=== PATIENT | female | born 1985 | race Two or more races ===

== ENCOUNTER → 2020-06-27 | Outpatient (CLI) | payer OTHER ==
--- NOTE | 2020-06-30 00:19 | ECWPNPC ---
PATIENT NAME: DEEDEE BE : 1985 GENDER: FEMALE VISIT DATE: 06/27/2020 DISCHARGE DATE: 06/27/20 1403 VISIT LOCKED DATE TIME: PHYSICIAN: LYNN WEBBER RESOURCE: LYNN WEBBER REASON FOR APPOINTMENT 1. CESEARIAN SECTION SCAR PAIN HISTORY OF PRESENT ILLNESS GENERAL: DEEDEE IS A 35-YEAR-OLD [employer] REFERRED BY [facility] TO EVALUATE PERSISTENT RIGHT SIDED INCISIONAL PAIN. HISTORY OF TRANSVERSE IN JULY 2018. HAD SEVERE INCISIONAL PAIN POST DELIVERY THAT IMPROVED WITH USE OF GABAPENTIN. THREE MONTHS AFTER HAVING IUD PLACED SHE HAD TO HAVE IUD REMOVED IN APRIL 2019 DUE TO PERFORATED UTERUS. SINCE THEN SHE HAS BEEN HAVING RIGHT SIDED INCISIONAL/INGUINAL PAIN. PAIN IS 0/10 TODAY BUT WILL INCREASE OVER THE NEXT 5 DAYS TO A LEVEL 5/10 VAS. STATES THAT FOR 5 DAYS OUT OF A MONTH SHE HAS SEVERE 10 OUT OF 10 PAIN. HAD STEROID INJECTION INTO RIGHT GROIN THAT RESOLVED PAIN FOR 3 MONTHS. SHE IS HOPING TO HAVE THIS DONE AGAIN. DR. CESAR CAME IN TO EVALUATE AND EXAMINE PATIENT. 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 HE ALSO DISCUSSED MEDICATIONS THAT SHE COULD USE PERIODICALLY IF NECESSARY FOR SEVERE PAIN EPISODES. SHE DOES NOT WANT TO TAKE TRAMADOL SHE'S HAD SIGNIFICANT BEHAVIORAL CHANGES ON TRAMADOL IN THE PAST. STATES SHE USED GABAPENTIN WITHOUT SIDE EFFECTS. BRIEFLY DISCUSSED USING NONSTEROIDALS AND GABAPENTIN. AFTER MUCH DISCUSSION PATIENT WOULD LIKE TO PROCEED WITH TRIAL OF ILIOINGUINAL NERVE BLOCK. - - -. FALL RISK SCREENING: SCREENING :NO FALLS REPORTED IN THE LAST YEAR PAIN SCREENING: PATIENT HAS A COMPLAINT OF ACUTE OR CHRONIC PAIN :YES LOCATION OF PAIN:OTHER: [place]EL[place] AREA INTENSITY OF PAIN (SCALE OF 1 TO 10):0 WHAT DOES YOUR PAIN FEEL LIKE:ACHING, THROBBING DULL DURATION:CONTINOUS, CONSTANT, ALL DAY PAIN IS INCREASED BY:ACTIVITIES PAIN IS DECREASED BY:OTHERS HEATING PAD NURSING NOTE: - - -. PAIN CENTER INTAKE QUESTIONS: DO YOU HAVE A HISTORY OF MRSA? :NO DO YOU TAKE A BLOOD THINNERS? :NO DO YOU HAVE ANY BLEEDING DISORDERS? :NO ANY NEW NUMBNESS OR WEAKNESS IN YOUR LEGS OR ARMS? :NO ANY PACEMAKER,DEFIBRILLATOR, OR DORSAL COLUMN STIMULATOR? :NO DO YOU HAVE ANY RASHES OR OPEN SORES? :NO ARE YOU ALLERGIC TO IV DYE? :NO ARE YOU DIABETIC? :NO ANY NEW PROBLEMS WITH YOUR MEDICATIONS? :NO HAVE YOU RECEIVED A VACCINE IN THE PAST 30 DAYS? :NO DO YOU PLAN TO RECEIVE A VACCINE IN THE NEXT 21 DAYS? :NO DO YOU NEED ANY PRESCRIPTION? :NO DO YOU TAKE ANY IMMUNOSUPPRESSIVE MEDICATIONS? :NO CURRENT MEDICATIONS TAKING FLONASE ALLERGY RELIEF 50 MCG/ACT SUSPENSION 1 SPRAY IN EACH NOSTRIL NASALLY ONCE A DAY TAKING VITAMIN D-3 5000 UNIT/ML LIQUID 1 ML UNDER THE TONGUE SUBLINGUAL ONCE A DAY TAKING VALACYCLOVIR HCL 500 MG TABLET 1 TABLET ORALLY ONCE A DAY TAKING PAROXETINE HCL 20 MG TABLET 1 TABLET IN THE MORNING ORALLY ONCE A DAY TAKING ALLOPURINOL 180 MG ORALLY DAILY TAKING OMEPRAZOLE 40 MG CAPSULE DELAYED RELEASE 1 CAPSULE 30 MINUTES BEFORE MORNING MEAL ORALLY ONCE A DAY MEDICATION LIST REVIEWED AND RECONCILED WITH THE PATIENT PAST MEDICAL HISTORY MIGRAINES DEPRESSION ANXIETY GERD UMBILICAL HERNIA DIASTASIS RECTI (ABDOMINAL SEPARATION) ALLERGIES ANCEF SURGICAL HISTORY BREAST BIOPSY RIGHT ACL REPAIR LEFT ACL/MENISCUS REPAIR RIGHT ARM SURGERY RIGHT KNEE MENISCUS REPAIR SINOPLASTY LAPAROSCOPIC IUD REMOVAL BUNYONECTOMY FAMILY HISTORY FATHER: ALIVE MOTHER: ALIVE SON(S): ALIVE 1 SON(S) - HEALTHY. SOCIAL HISTORY GENERAL: TOBACCO USE ARE YOU A:NONSMOKER SMOKING CESSATION INFORMATION GIVEN06/27/2020 LATEX QUESTIONNAIRE LATEX ALLERGY : HAVE YOU EVER DEVELOPED ANY TYPE OF REACTION AFTER HANDLING LATEX PRODUCTS SUCH RUBBER GLOVES, CONDOMS, DIAPHRAGMS, BALLOONS, SOCKS, OR UNDERWEAR?NO LATEX ALLERGY : HAVE YOU EVER DEVELOPED ANY TYPE OF REACTION DURING OR AFTER DENTAL APPOINTMENT, VAGINAL/RECTAL EXAMINATION, SURGICAL PROCEDURE, OR ANY OTHER EXPOSURE?NO LATEX RISK : HAVE YOU EVER HAD ANY DIFFICULTY BREATHING OR HIVES AFTER EATING OR HANDLING ANY FRUITS, OR VEGETABLES; SUCH KIWI, BANANAS, STONE FRUITS, OR CHESTNUTSYES NUTS LATEX RISK : DO YOU HAVE A PREVIOUS PERSONAL HISTORY OF MORE THAN NINE SURGERIES, SPINA BIFIDA, OR REPEATED CATHERIZATIONS? NO LATEX RISK : ARE YOU FREQUENTLY EXPOSED TO LATEX PRODUCTS IN YOUR OCCUPATION?NO DATE ASKED : 06/27/2020 ALCOHOL SCREENING DID YOU HAVE A DRINK CONTAINING ALCOHOL IN THE PAST YEAR?YES HOW OFTEN DID YOU HAVE A DRINK CONTAINING ALCOHOL IN THE PAST YEAR?TWO TO FOUR TIMES A MONTH (2 POINTS) HOW MANY DRINKS DID YOU HAVE ON A TYPICAL DAY WHEN YOU WERE DRINKING IN THE PAST YEAR?1 OR 2 (0 POINTS) HOW OFTEN DID YOU HAVE SIX OR MORE DRINKS ON ONE OCCASION IN THE PAST YEAR?NEVER (0 POINTS) POINTS2 INTERPRETATIONNEGATIVE RECREATIONAL DRUG USE DRUG USE?NO CAFFEINE CAFFEINE USE?YES HOW OFTEN AND HOW MUCH? TEA LEARNING BARRIERS / SPECIAL NEEDS CHANGE FROM LAST VISIT?NO BARRIERS TO LEARNING?NO HEARING IMPAIRED?NO VISION IMPAIRED?YES :CORRECTIVE LENSES COGNITIVELY IMPAIRED?NO READINESS TO LEARN?NO LEARNING PREFERENCES?YES :BOOKLETS, HANDOUTS LEARNING CAPABILITIES PRESENT?NO EMOTIONAL BARRIERS?NO SPECIAL DEVICES?NO REGIONAL MEDICAL DIRECTOR NEEDED?NO HOSPITALIZATION/MAJOR DIAGNOSTIC PROCEDURE SURGICAL REVIEW OF SYSTEMS CONSTITUTIONAL: ANY RECENT FEVER NO . CHILLS NO . WEIGHT CHANGE OF UNKNOWN REASONS NO . GASTROENTEROLOGY: NEW UNEXPLAINABLE CHANGES IN BOWEL CONTROL NO . CONSTIPATION NO . GENITOURINARY: ANY NEW CHANGE IN BLADDER CONTROL? NO . NEUROLOGY: NEW ONSET DIZZINESS OR NEUROLOGICAL CHANGES NOT MENTIONED NO . NEW NUMBNESS OR PAIN PATTERNS NOT MENTIONED AND PERTINENT TO TODAY'S VISIT NO . CARDIOLOGY: NEW CHEST PRESSURE NO . NEW CHEST PAIN NO . RESPIRATORY: UNEXPLAINABLE COUGH NO . NEW SHORTNESS OF BREATH NO . EXAMINATION GENERAL EXAMINATION: GENERALNO ACUTE DISTRESS, WELL NOURISHED AND HYDRATED. PSYCHAPPROPRIATE MOOD AND AFFECT . FACE:UNREMARKABLE. LUNGS:CLEAR TO AUSCULTATION BILATERALLY, NO WHEEZES, RHONCHI, RALES. HEART:NO MURMURS, REGULAR RATE AND RHYTHM. ABDOMEN:TENDERNESS NOTED WITH PALPATION OVER RIGHT ILIOINGUINAL NERVE PATHWAY/INCISIONAL REGION. NO REDNESS OR SWELLING NOTED . 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 DISPOSITION & COMMUNICATION FOLLOW UP POST PROCEDURE (REASON: RIGHT ILIOINGUINAL NERVE BLOCK) ELECTRONICALLY SIGNED BY ESTEE GLEZ ON 06/29/2020 AT 01:24 PM EST DISCLAIMER : THIS IS A VISIT SUMMARY EXTRACTED FROM THE [employer] CHART. IT IS NOT A COPY OF THE [employer] PROGRESS NOTE. RANDA
== END ==
LOC: M PAIN 13:00
PROVIDERS: ATTEND Nurse Practitioner Family
DX: M79.2 Neuralgia and neuritis, unspecified (principal); G43.909 Migraine, unspecified, not intractable, without status migrainosus; K21.9 Gastro-esophageal reflux disease without esophagitis; Z86.59 Personal history of other mental and behavioral disorders; Z88.1 Allergy status to other antibiotic agents; Z79.899 Other long term (current) drug therapy

== ENCOUNTER → 2021-02-01 | Outpatient (REF) | payer OTHER ==
[2021-02-01 12:18] LABS: APPEARANCE, URINE HAZY (CLEAR); BACTERIA, URINE AUTO NEGATIVE (NEGATIVE); BILIRUBIN, URINE AUTO NEGATIVE (NEGATIVE); BLOOD, URINE BLOOD NEGATIVE (NEGATIVE); COLOR, URINE YELLOW (YELLOW); GLUCOSE, URINE (UA) AUTO NEGATIVE (NEGATIVE); KETONE, URINE AUTO NEGATIVE (NEGATIVE); LEUKOCYTE ESTERASE, URINE AUTO NEGATIVE (NEGATIVE); MUCUS, URINE SMALL (NEGATIVE); NITRITE, URINE AUTO NEGATIVE (NEGATIVE); PROTEIN, URINE AUTO NEGATIVE (NEGATIVE); RBC, URINE AUTO 2 /HPF (0-3); SPECIFIC GRAVITY URINE AUTO 1.013 (1.002-1.035); SQUAMOUS EPITHELIAL CELL UR AU 0 /HPF (0-6); UROBILINOGEN, URINE AUTO 0.2 mg/dL (0.0-2.0); WBC, URINE AUTO 1 /HPF (0-3)
== END ==
LOC: M LAB REF 11:11
PROVIDERS: ATTEND Physician Assistant Medical
DX: N39.0 Urinary tract infection, site not specified (principal)

== ENCOUNTER → 2021-03-28 | Outpatient (REF) | payer OTHER ==
[2021-03-28 18:02] LABS: APPEARANCE, URINE CLEAR (CLEAR); BACTERIA, URINE AUTO NEGATIVE (NEGATIVE); BILIRUBIN, URINE AUTO NEGATIVE (NEGATIVE); BLOOD, URINE BLOOD NEGATIVE (NEGATIVE); COLOR, URINE STRAW (YELLOW); GLUCOSE, URINE (UA) AUTO NEGATIVE (NEGATIVE); KETONE, URINE AUTO NEGATIVE (NEGATIVE); LEUKOCYTE ESTERASE, URINE AUTO TRACE (NEGATIVE); NITRITE, URINE AUTO NEGATIVE (NEGATIVE); PROTEIN, URINE AUTO NEGATIVE (NEGATIVE); RBC, URINE AUTO 0 /HPF (0-3); SPECIFIC GRAVITY URINE AUTO 1.004 (1.002-1.035); SQUAMOUS EPITHELIAL CELL UR AU 1 /HPF (0-6); UROBILINOGEN, URINE AUTO 0.2 mg/dL (0.0-2.0); WBC, URINE AUTO 9 /HPF (0-3)
== END ==
LOC: M LAB REF 16:47
PROVIDERS: ATTEND Physician Assistant
DX: R30.0 Dysuria (principal)

== ENCOUNTER 2021-04-22 12:40 | Emergency (ER) | payer OTHER ==
[~2021-04-22] VITALS: Ht 165.1 cm; Wt 78.7 kg
[2021-04-22] MEDS ORDERED: AMIT10TA7 PO (12:50)
[2021-04-22] MEDS ORDERED: ZYRTTAB8 PO (12:50)
[2021-04-22] MEDS ORDERED: FLUO20CA22 PO (12:50)
[2021-04-22] MEDS ORDERED: ACETAMINOPHEN 500 MG TAB PO ONE (13:20)
[2021-04-22 14:19] LABS: RSV AMPLIFICATION NEGATIVE (NEGATIVE)
[2021-04-22 14:41] VITALS: BP 135/80
== END 2021-04-22 14:52 | disposition home or self-care (01) ==
LOC: M ED 12:40
DX: J06.9 Acute upper respiratory infection, unspecified (principal)

== ENCOUNTER 2021-04-24 20:46 | Emergency (ER) | payer OTHER ==
[~2021-04-24] VITALS: Ht 165.1 cm; Wt 81.5 kg
[2021-04-24 20:46] VITALS: BP 133/71
[~2021-04-24 20:46] MED LIST: AMIT10TA7 PO; FLUO20CA22 PO; ZYRTTAB8 PO
--- OUTSIDE RECORDS SUMMARY | 2021-04-24 20:52 | CCD | Continuity of Care Document ---
Author Author Coni RANDLE Organization Unknown Address [address] [place] [address] Phone [phone] Problems Description No Information Available Social History Type Date Description Comments Sex Unknown Allergies and adverse reactions Description No Information Available Medications Active Medications SIG Qnty Indications Ordering Provide r Date Zonisamide 50mg Capsules 1 po qhs 1 week, then 1 po bid. yonatan Ma M.D. 08/18/2020 Riboflavin 100mg Capsules 1 by mouth twice a day yonatan Pratt M.D. 12/31/2019 Immunizations Description No Information Available Vital Signs Description No Information Available Results Description No Information Available Procedures Date Code Description Status 03/09/2021 82566 Office/Outpatient Established Mo d MDM 30-39 Min Completed 12/12/2020 18721 Nerve Conduction 11-12 Studies C ompleted 12/12/2020 62711 Needle Electromyography Complete , Five Or More Muscles Studied Completed 12/12/2020 53172 Needle Electromyography Complete , Five Or More Muscles Studied Completed 11/18/2020 76722 MRI Spine Cervical W/O Contrast Completed 11/18/2020 74461 MRI Spine Cervical W/O Contrast Completed 10/24/2020 86538 Office/Outpatient Established Mo d MDM 30-39 Min Completed Medical Devices Description No Information Available Encounters Type Date Location Provider Dx Diagnosis Office Visit 03/09/2021 7:15a Main office - Dorota Pratt M.D. G56.03 Carpal tunnel syndrome, bilateral upper limbs M47.892 Other spondylosis, cervical region G47.51 Confusional arousals R41.3 Other amnesia G43.809 Other migraine, not intracta ble, without status migrainosus R51.9 Headache, unspecified Office Visit 10/24/2020 7:00a Main office - [place] Breana Pratt M.D. G43.809 Other migraine, not intractable, without status migrainosus M54.2 Cervicalgia R20.2 Paresthesia of skin M25.512 Pain in left shoulder M25.511 Pain in right shoulder G44.40 Drug-induced headache, NEC, not intractable Assessments Date Code Description Provider 03/09/2021 G56.03 Carpal tunnel syndrome, bilatera l upper limbs Breana SantaNereyda hameedDAzael 03/09/2021 M47.892 Other spondylosis, cervical sivakumar on Breana Santa, M.DAzael 03/09/2021 G47.51 Confusional arousals Breana lynch M.D. 03/09/2021 R41.3 Other amnesia Breana Pratt M. DAzael 03/09/2021 G43.809 Other migraine, not intractable, without status migrainosus Breana SantaNereyda hameedDAzael 03/09/2021 R51.9 Headache, unspecified Breana Lat yoseph, M.DAzael 12/12/2020 R20.2 Paresthesia of skin Aristeo Ma M.D. 12/12/2020 G56.01 Carpal tunnel syndrome, right up per limb Aristeo Ma M.D. 12/12/2020 G56.02 Carpal tunnel syndrome, left upp er limb Aristeo Ma M.D. 11/18/2020 M54.2 Cervicalgia Anne Santa, Andres.D Azael 11/18/2020 M54.2 Cervicalgia MRI 11/18/2020 R20.2 Paresthesia of skin Anne Santa, M.DAzael 11/18/2020 R20.2 Paresthesia of skin MRI 11/18/2020 G43.809 Other migraine, not intractable, without status migrainosus Anne Santa, M.DAzael 11/18/2020 G43.809 Other migraine, not intractable, without status migrainosus MRI 10/24/2020 G43.809 Other migraine, not intractable, without status migrainosus Breana Santa, M.DAzael 10/24/2020 M54.2 Cervicalgia Breana Santa, M. DAzael 10/24/2020 R20.2 Paresthesia of skin Breana Pratt M.D. 10/24/2020 M25.512 Pain in left shoulder Breana hameed M.D. 10/24/2020 M25.511 Pain in right shoulder Breana Mcdaniel M.D. 10/24/2020 G44.40 Drug-induced headach e, not elsewhere classified, not intractable Breana Pratt M.D. Plan of Treatment Future Appointment(s):* 05/29/2021 9:15 am - Breana Pratt M.D. at Main office - [place] Functional Status Description No Information Available Mental Status Description No Information Available Referrals Refer to Reason for Referral Status Appt Date Created
--- OUTSIDE RECORDS SUMMARY | 2021-04-24 20:52 | CCD | Continuity of Care Document ---
Author Author Coni PRATT M.D. Organization Unknown Address [address] [place] [id number] Phone [phone] Problems Description No Information Available Social History Type Date Description Comments Sex Unknown Allergies and adverse reactions Description No Information Available Medications Active Medications SIG Qnty Indications Ordering Provide r Date Zonisamide 50mg Capsules 1 po qhs 1 week, then 1 po bid. yontaan Ma M.D. 08/18/2020 Riboflavin 100mg Capsules 1 by mouth twice a day yonatan Pratt M.D. 12/31/2019 Immunizations Description No Information Available Vital Signs Description No Information Available Results Description No Information Available Procedures Date Code Description Status 03/09/2021 70798 Office/Outpatient Established Mo d MDM 30-39 Min Completed 12/12/2020 75251 Nerve Conduction 11-12 Studies C ompleted 12/12/2020 00217 Needle Electromyography Complete , Five Or More Muscles Studied Completed 12/12/2020 63188 Needle Electromyography Complete , Five Or More Muscles Studied Completed 11/18/2020 56140 MRI Spine Cervical W/O Contrast Completed 11/18/2020 66369 MRI Spine Cervical W/O Contrast Completed 10/24/2020 47929 Office/Outpatient Established Mo d MDM 30-39 Min [...] Office Visit 10/24/2020 7:00a Main office - [place] Breana Pratt M.D. G43.809 Other migraine, not intractable, without status migrainosus M54.2 Cervicalgia R20.2 Paresthesia of skin M25.512 Pain in left shoulder M25.511 Pain in right shoulder G44.40 Drug-induced headache, NEC, not intractable Assessments Date Code Description Provider 03/09/2021 G56.03 Carpal tunnel syndrome, bilatera l upper limbs Breana Santa, M.DAzael 03/09/2021 M47.892 Other spondylosis, cervical sivakumar on Breana Santa, M.DAzael 03/09/2021 G47.51 Confusional arousals Breana lynch M.D. 03/09/2021 R41.3 Other amnesia Breana Santa, M. DAzael 03/09/2021 G43.809 Other migraine, not intractable, without status migrainosus Breana Santa, M.DAzael 03/09/2021 R51.9 Headache, unspecified Breana Lat if, M.DAzael 12/12/2020 R20.2 Paresthesia of skin Aristeo Ma M.D. 12/12/2020 G56.01 Carpal tunnel syndrome, right up per limb Aristeo Ma M.D. 12/12/2020 G56.02 Carpal tunnel syndrome, left upp er limb Aristeo Ma M.D. 11/18/2020 M54.2 Cervicalgia Anne Santa, M.D Azael 11/18/2020 M54.2 Cervicalgia MRI 11/18/2020 R20.2 Paresthesia of skin Anne Santa, M.DAzael 11/18/2020 R20.2 Paresthesia of skin MRI 11/18/2020 G43.809 Other migraine, not intractable, without status migrainosus Anne Santa, M.DAzeal 11/18/2020 G43.809 Other migraine, not intractable, without status migrainosus MRI 10/24/2020 G43.809 Other migraine, not intractable, without status migrainosus Breana Santa, M.DAzael 10/24/2020 M54.2 Cervicalgia Breana Santa, M. D. 10/24/2020 R20.2 Paresthesia of skin Breana Pratt M.D. 10/24/2020 M25.512 Pain in left shoulder Breana hameed M.D. 10/24/2020 M25.511 Pain in right shoulder Breana Mcdaniel M.D. 10/24/2020 G44.40 Drug-induced headach e, not elsewhere classified, not intractable Breana Pratt M.D. Plan of Treatment Future Appointment(s):* 05/29/2021 9:15 am - Breana Pratt M.D. at Main office - [place] Functional Status Description No Information Available Mental Status Description No Information Available Referrals Refer to Reason for Referral Status Appt Date Created
--- OUTSIDE RECORDS SUMMARY | 2021-04-24 20:52 | CCD ---
Continuity of Care Document (CCD) Created on: 03/09/2021 Coni Fragoso External Reference #: [id number] : [id number] Sex: Female Author Author Coni ZAYAS M.D. Organization Unknown Address [address] [place] [id number] Phone [phone] Problems Description No Information Available Social History Type Date Description Comments Sex Unknown Allergies, Adverse Reactions, Alerts Description No Information Available Medications Active Medications SIG Qnty Indications Ordering Provide r Date Zonisamide 50mg Capsules 1 po qhs 1 week, then 1 po bid. yonatan Ma M.D. 08/18/2020 Riboflavin 100mg Capsules 1 by mouth twice a day yonatan Zayas M.D. 12/31/2019 Immunizations Description No Information Available Vital Signs Description No Information Available Results Description No Information Available Procedures Date Code Description Status 12/12/2020 78598 Nerve Conduction 11-12 Studies C ompleted 12/12/2020 13909 Needle Electromyography Complete , Five Or More Muscles Studied Completed 12/12/2020 16048 Needle Electromyography Complete , Five Or More Muscles Studied Completed 11/18/2020 56603 MRI Spine Cervical W/O Contrast Completed 11/18/2020 68202 MRI Spine Cervical W/O Contrast Completed 10/24/2020 62679 Office/Outpatient Established Mo d MDM 30-39 Min Completed Medical Devices Description No Information Available Encounters Type Date Location Provider Dx Diagnosis Office Visit 10/24/2020 7:00a Main office - Dorota Zayas M.D. G43.809 Other migraine, not intractable, without status migrainosus M54.2 Cervicalgia R20.2 Paresthesia of skin M25.512 Pain in left shoulder M25.511 Pain in right shoulder G44.40 Drug-induced headache, NEC, not intractable Assessments Date Code Description Provider 12/12/2020 R20.2 Paresthesia of skin Aristeo Ma M.D. 12/12/2020 G56.01 Carpal tunnel syndrome, right up per limb Aristeo Ma M.D. 12/12/2020 G56.02 Carpal tunnel syndrome, left upp er limb Aristeo Ma M.D. 11/18/2020 M54.2 Cervicalgia Anne Santa, M.D Azael 11/18/2020 M54.2 Cervicalgia MRI 11/18/2020 R20.2 Paresthesia of skin Anne Santa, M.D. 11/18/2020 R20.2 Paresthesia of skin MRI 11/18/2020 G43.809 Other migraine, not intractable, without status migrainosus Anne Santa, M.DAzael 11/18/2020 G43.809 Other migraine, not intractable, without status migrainosus MRI 10/24/2020 G43.809 Other migraine, not intractable, without status migrainosus Breana Santa, M.DAzael 10/24/2020 M54.2 Cervicalgia Breana Santa, M. DAzael 10/24/2020 R20.2 Paresthesia of skin Breana Santa , M.D. 10/24/2020 M25.512 Pain in left shoulder Breana Lat if, M.DAzael 10/24/2020 M25.511 Pain in right shoulder Breana La tif, M.DAzael 10/24/2020 G44.40 Drug-induced headach e, not elsewhere classified, not intractable Breana Zayas M.D. Plan of Treatment No Information Available Functional Status Description No Information Available Mental Status Description No Information Available Referrals Refer to Reason for Referral Status Appt Date Created
--- OUTSIDE RECORDS SUMMARY | 2021-04-24 20:52 | CCD ---
Author Author [facility] Organization [facility] Address Unknown Phone Unavailable Care Team Providers Care Industrial Boilermaker Name Role Phone NEVILLE ZAYAS MD Unavailable Unavailable NEVILLE ZAYAS MD Unavailable Unavailable NEVILLE ZAYAS MD Unavailable Unavailable NEVILLE ZAYAS MD Unavailable Unavailable NEVILLE ZAYAS MD Unavailable Unavailable NEVILLE ZAYAS MD Unavailable Unavailable NEVILLE ZAYAS MD Unavailable Unavailable NEVILLE ZAYAS MD Unavailable Unavailable NEVILLE ZAYAS MD Unavailable Unavailable NEVILLE ZAYAS MD Unavailable Unavailable NEVILLE ZAYAS MD Unavailable Unavailable NEVILLE ZAYAS MD Unavailable Unavailable NEVILLE ZAYAS MD Unavailable Unavailable NEVILLE ZAYAS MD Unavailable Unavailable NEVILLE ZAYAS MD Unavailable Unavailable NEVILLE ZAYAS MD Unavailable Unavailable NEVILLE ZAYAS MD Unavailable Unavailable NEVILLE ZAYAS MD Unavailable Unavailable NEVILLE ZAYAS MD Unavailable Unavailable NEVILLE ZAYAS MD Unavailable Unavailable NEVILLE ZAYAS MD Unavailable Unavailable NEVILLE ZAYAS MD Unavailable Unavailable NEVILLE ZAYAS MD Unavailable Unavailable NEVILLE ZAYAS MD Unavailable Unavailable NEVILLE ZAYAS MD Unavailable Unavailable NEVILLE ZAYAS MD Unavailable Unavailable NEVILLE ZAYAS MD Unavailable Unavailable NEVILLE ZAYAS MD Unavailable Unavailable NEVILLE ZAYAS MD Unavailable Unavailable NEVILLE ZAYAS MD Unavailable Unavailable NEVILLE ZAYAS MD Unavailable Unavailable NEVILLE ZAYAS MD Unavailable Unavailable NEVILLE ZAYAS MD Unavailable Unavailable NEVILLE ZAYAS MD Unavailable Unavailable NEVILLE ZAYAS MD Unavailable Unavailable NEVILLE ZAYAS MD Unavailable Unavailable NEVILLE ZAYAS MD Unavailable Unavailable NEVILLE ZAYAS MD Unavailable Unavailable NEVILLE ZAYAS MD Unavailable Unavailable MARQUEZ, NEVILLE JC Unavailable Unavailable MARQUEZ, NEVILLE JC Unavailable Unavailable MARQUEZ, NEVILLE JC Unavailable Unavailable MARQUEZ, NEVILLE JC Unavailable Unavailable MAJAK, R KATHLEEN DPM Unavailable Unavailable MAJAK, R KATHLEEN DPM Unavailable Unavailable MAJAK, R KATHLEEN DPM Unavailable Unavailable MAJAK, R KATHLEEN DPM Unavailable Unavailable MAJAK, R KATHLEEN DPM Unavailable Unavailable MAJAK, R KATHLEEN DPM Unavailable Unavailable MAJAK, R KATHLEEN DPM Unavailable Unavailable MAJAK, R KATHLEEN DPM Unavailable Unavailable MAJAK, R KATHLEEN DPM Unavailable Unavailable MAJAK, R KATHLEEN DPM Unavailable Unavailable MAJAK, R KATHLEEN DPM Unavailable Unavailable MAJAK, R KATHLEEN DPM Unavailable Unavailable MAJAK, R KATHLEEN DPM Unavailable Unavailable MAJAK, R KATHLEEN DPM Unavailable Unavailable MAJAK, R KATHLEEN DPM Unavailable Unavailable MAJAK, R KATHLEEN DPM Unavailable Unavailable MAJAK, R KATHLEEN DPM Unavailable Unavailable MAJAK, R KATHLEEN DPM Unavailable Unavailable MAJAK, R KATHLEEN DPM Unavailable Unavailable MAJAK, R KATHLEEN DPM Unavailable Unavailable MAJAK, R KATHLEEN DPM Unavailable Unavailable MAJAK, R KATHLEEN DPM Unavailable Unavailable MAJAK, R KATHLEEN DPM Unavailable Unavailable MAJAK, R KATHLEEN DPM Unavailable Unavailable MAJAK, R KATHLEEN DPM Unavailable Unavailable MAJAK, R KATHLEEN DPM Unavailable Unavailable MAJAK, R KATHLEEN DPM Unavailable Unavailable MAJAK, R KATHLEEN DPM Unavailable Unavailable MAJAK, R KATHLEEN DPM Unavailable Unavailable MAJAK, R KATHLEEN DPM Unavailable Unavailable MAJAK, R KATHELEN DPM Unavailable Unavailable MAJAK, R KATHLEEN DPM Unavailable Unavailable Re-disclosure Warning The records that you are about to access may contain information from federally-assisted alcohol or drug abuse programs. If such information is present, then the following federally mandated warning applies: This information has been disclosed to you from records protected by federal confidentiality rules (42 CFR part 2). The federal rules prohibit you from making any further disclosure of this information unless further disclosure is expressly permitted by the written consent of the person to whom it pertains or as otherwise permitted by 42 CFR part 2. A general authorization for the release of medical or other information is NOT sufficient for this purpose. The Federal rules restrict any use of the information to criminally investigate or prosecute any alcohol or drug abuse patient.The records that you are about to access may contain highly sensitive health information, the redisclosure of which is protected by Article 27-F of the [facility] Public Health law. If you continue you may have access to information: Regarding HIV / AIDS; Provided by facilities licensed or operated by the [facility] Office of Mental Health; or Provided by the [facility] Office for People With Developmental Disabilities. If such information is present, then the following [facility] mandated warning applies: This information has been disclosed to you from confidential records which are protected by state law. State law prohibits you from making any further disclosure of this information without the specific written consent of the person to whom it pertains, or as otherwise permitted by law. Any unauthorized further disclosure in violation of state law may result in a fine or custodial sentence or both. A general authorization for the release of medical or other information is NOT sufficient authorization for further disc losure. Encounters Encounter Providers Location Date Indications Data Source(s ) Outpatient Attender: NEVILLE ZAYAS MD Main [facility] 03/09/2021 07:15:00 AM EDT [facility] ([facility] Outpatient Attender: NEVILLE ZAYAS MD Main office [facility] 10/24/2020 07:00:00 AM EDT [facility] ([facility] Outpatient [address] [address] 06/27/2020 12:00:00 AM EST eCW1 ([facility]) Outpatient Attender: NEVILLE ZAYAS MD Main office [facility] 06/26/2020 06:30:00 AM EST [facility] ([facility] Outpatient Attender: KATHLEEN MOORE DPM [place] [facility] 05/09 07:15:00 AM EST [facility] ([facility] Outpatient Attender: KATHLEEN MOORE DPM [place] [facility] 10/2019 01:15:00 PM EDT [facility] ([facility] Outpatient Attender: NEVILLE ZAYAS MD Main [facility] 03/09/2020 07:15:00 AM EDT [facility] ([facility] ) Medications Medication Brand Name Start Date Product Form Dose Route Admi nistrative Instructions Pharmacy Instructions Status Indications Reaction Description Data Source(s) zonisamide 50 MG Oral Capsule Zonisamide 08/18/2020 12:00:00 AM EST ORAL active [facility] ([facility], ) Diclofenac Sodium 0.01 MG/MG Topical Gel Diclofenac Sodium 05/18/2020 12:00:00 AM EST active [facility] ([facility] Prednisone 10 MG Oral Tablet Prednisone 03/13/2020 12:00:00 AM EDT active [facility] ([facility] Insurance Providers Payer name Policy type / Coverage type Policy ID Covered republican ID Covered republican's relationship to ingram Policy Ingram Plan Information [facility] [id number] SP [id number] [facility] [id number] SP [id number] Problems, Conditions, and Diagnoses Code Display Name Description Problem Type Effective Dates Data Source(s) Other synovitis and tenosynovitis, left ankle and foot Other synovitis and tenosynovitis, left ankle and foot Problem 03/23/2020 12:00:00 AM ED T [facility] ([facility] Achilles tendinitis, left leg Achilles tendinitis, lef t leg Problem 03/23/2020 12:00:00 AM EDT [facility] ([facility] Surgeries/Procedures Procedure Description Date Indications Data Source(s) OFFICE OUTPATIENT VISIT 25 MINUTES 03/09/2021 12:00:00 AM EDT [facility] ([facility], ) Needle electromyography, each extremity, with related paraspinal areas, when performed, done with nerve conduction, amplitude and latency/velocity study; complete, five or more muscles studied, innervated by three or more nerves or four or more spinal levels (list separately in addition to the code for primary procedure). 12/12/2020 12:00:00 AM EDT MEDEN T ([facility], ) Needle electromyography, each extremity, with related paraspinal areas, when performed, done with nerve conduction, amplitude and latency/velocity study; complete, five or more muscles studied, innervated by three or more nerves or four or more spinal levels (list separately in addition to the code for primary procedure). 12/12/2020 12:00:00 AM EDT MEDEN T ([facility] ) Nerve Conduction 11-12 Studies 12/12/2020 12:00:00 AM EDT [facility] ([facility] ) MRI SPINAL CANAL CERVICAL W/O CONTRAST MATRL 12:00:00 AM EDT [facility] ([facility] ) MRI SPINAL CANAL CERVICAL W/O CONTRAST MATRL 12:00:00 AM EDT [facility] ([facility] ) OFFICE OUTPATIENT VISIT 25 MINUTES 10/24/2020 12:00:00 AM EDT [facility] ([facility] ) OFFICE OUTPATIENT VISIT 25 MINUTES 06/26/2020 12:00:00 AM EST [facility] ([facility] ) Magnetic Resonance Angiogtaphy Head W/O Contrast Material(S) 03/06/2020 12:00:00 AM EDT [facility] ([facility] ) Magnetic Resonance Angiogtaphy Head W/O Contrast Material(S) 03/06/2020 12:00:00 AM EDT [facility] ([facility] ) Magnetic Resonance Angiography Neck W/O Contrast Materials 03/06/2020 12:00:00 AM EDT [facility] ([facility] ) Magnetic Resonance Angiography Neck W/O Contrast Materials 03/06/2020 12:00:00 AM EDT [facility] ([facility]) MRI BRAIN BRAIN STEM W/O CONTRAST MATERIAL 03/06/2020 12:00:00 AM EDT [facility] ([facility] ) MRI BRAIN BRAIN STEM W/O CONTRAST MATERIAL 03/06/2020 12:00:00 AM EDT [facility] ([facility] ) Results No Information Social History Code Duration Value Status Description Data Source(s ) Smoking 06/27/2020 12:00:00 AM EST Never Smoker completed Never S hali eCW1 ([facility])
--- OUTSIDE RECORDS SUMMARY | 2021-04-24 23:25 | CCD ---
Author Author [facility] Organization [facility] Address Unknown Phone Unavailable Care Team Providers Care Instrument Tester Name Role Phone NEVILLE ZAYAS MD Unavailable [...] is protected by Article 27-F of the [facility] Public Health law. If you continue you may have access to information: Regarding HIV / AIDS; Provided by facilities licensed or operated by the [facility] Office of Mental Health; or Provided by the [facility] Office for People With Developmental Disabilities. If such information is present, then the following [facility] mandated warning applies: This information has been [...] law may result in a fine or skilled nursing sentence or both. A general authorization for the release of medical or other information is NOT sufficient authorization for further disc losure. Encounters Encounter Providers Location Date Indications Data Source(s ) Outpatient Attender: NEVILLE ZAYAS MD Main [facility] 03/09/2021 07:15:00 AM EDT [facility] ([facility] Outpatient Attender: NEVILLE ZAYAS MD Main office [facility] 10/24/2020 07:00:00 AM EDT [facility] ([facility] Outpatient [address] [address] 06/27/2020 12:00:00 AM EST eCW1 ([facility]) Outpatient Attender: NEVILLE ZAYAS MD Main office [facility] 06/26/2020 06:30:00 AM EST [facility] ([facility]) Outpatient Attender: KATHLEEN MOORE DPM [place] [facility] 05/09 07:15:00 AM EST [facility] ([facility] Outpatient Attender: KATHLEEN MOORE DPM [place] [facility] 10/2019 01:15:00 PM EDT [facility] ([facility] Outpatient Attender: NEVILLE ZAYAS MD Main [facility] 03/09/2020 07:15:00 AM EDT [facility] ([facility] ) Medications Medication Brand Name Start Date Product Form Dose Route Admi nistrative Instructions Pharmacy Instructions Status Indications Reaction Description Data Source(s) zonisamide 50 MG Oral Capsule Zonisamide 08/18/2020 12:00:00 AM EST ORAL active [facility] ([facility] ) Diclofenac Sodium 0.01 MG/MG Topical Gel Diclofenac Sodium 05/18/2020 12:00:00 AM EST active [facility] ([facility] Prednisone 10 MG Oral Tablet Prednisone 03/13/2020 12:00:00 AM EDT active [facility] ([facility] Insurance Providers Payer name Policy type / Coverage type Policy ID Covered libertarian ID Covered libertarian's relationship to ingram Policy Ingram Plan Information [facility] [employer] [id number] SP [id number] [facility] [id number] SP [id number] Problems, Conditions, and Diagnoses Code Display Name [...] 25 MINUTES 03/09/2021 12:00:00 AM EDT [facility] ([facility], ) Needle electromyography, each extremity, with related paraspinal areas, when performed, done with nerve conduction, amplitude and latency/velocity study; complete, five or more muscles studied, innervated by three or more nerves or four or more spinal levels (list separately in addition to the code for primary procedure). 12/12/2020 12:00:00 AM EDT MEDEN T ([facility], ) Needle electromyography, each extremity, with related paraspinal areas, when performed, done with nerve conduction, amplitude and latency/velocity study; complete, five or more muscles studied, innervated by three or more nerves or four or more spinal levels (list separately in addition to the code for primary procedure). 12/12/2020 12:00:00 AM EDT MEDEN T ([facility], ) Nerve Conduction 11-12 Studies 12/12/2020 12:00:00 AM EDT [facility] ([facility] ) MRI SPINAL CANAL CERVICAL W/O CONTRAST MATRL 12:00:00 AM EDT [facility] ([facility] ) MRI SPINAL CANAL CERVICAL W/O CONTRAST MATRL 12:00:00 AM EDT [facility] ([facility] ) OFFICE OUTPATIENT VISIT 25 MINUTES 10/24/2020 12:00:00 AM EDT [facility] ([facility] ) OFFICE OUTPATIENT VISIT 25 MINUTES 06/26/2020 12:00:00 AM EST [facility] ([facility] ) Magnetic Resonance Angiogtaphy Head W/O Contrast Material(S) 03/06/2020 12:00:00 AM EDT [facility] ([facility] ) Magnetic Resonance Angiogtaphy Head W/O Contrast Material(S) 03/06/2020 12:00:00 AM EDT [facility] ([facility] ) Magnetic Resonance Angiography Neck W/O Contrast Materials 03/06/2020 12:00:00 AM EDT [facility] ([facility] ) Magnetic Resonance Angiography Neck W/O Contrast Materials 03/06/2020 12:00:00 AM EDT [facility] ([facility]) MRI BRAIN BRAIN STEM W/O CONTRAST MATERIAL 03/06/2020 12:00:00 AM EDT [facility] ([facility] ) MRI BRAIN BRAIN STEM W/O CONTRAST MATERIAL 03/06/2020 12:00:00 AM EDT [facility] ([facility] ) Results No Information Social History Code Duration Value Status Description Data Source(s ) Smoking 06/27/2020 12:00:00 AM EST Never Smoker completed Never S hali eCW1 ([facility])
== END 2021-04-24 23:29 | disposition left against medical advice (07) ==
LOC: M ED 20:46
DX: Z53.21 Procedure and treatment not carried out due to patient leaving prior to being seen by health care provider (principal)

== ENCOUNTER → 2021-05-18 | Outpatient (REF) | payer OTHER ==
[2021-05-18 18:13] LABS: APPEARANCE, URINE CLEAR (CLEAR); BACTERIA, URINE AUTO NEGATIVE (NEGATIVE); BILIRUBIN, URINE AUTO NEGATIVE (NEGATIVE); BLOOD, URINE BLOOD NEGATIVE (NEGATIVE); COLOR, URINE YELLOW (YELLOW); GLUCOSE, URINE (UA) AUTO NEGATIVE (NEGATIVE); KETONE, URINE AUTO NEGATIVE (NEGATIVE); LEUKOCYTE ESTERASE, URINE AUTO TRACE (NEGATIVE); MUCUS, URINE SMALL (NEGATIVE); NITRITE, URINE AUTO NEGATIVE (NEGATIVE); PROTEIN, URINE AUTO NEGATIVE (NEGATIVE); RBC, URINE AUTO 0 /HPF (0-3); SPECIFIC GRAVITY URINE AUTO 1.021 (1.002-1.035); SQUAMOUS EPITHELIAL CELL UR AU 2 /HPF (0-6); UROBILINOGEN, URINE AUTO 0.2 mg/dL (0.0-2.0); WBC, URINE AUTO 1 /HPF (0-3)
[2021-05-18 19:48] LABS: GC DNA AMPLIFICATION NEGATIVE (NEGATIVE)
== END ==
LOC: M LAB REF 17:09
PROVIDERS: ATTEND Physician Assistant
DX: R30.0 Dysuria (principal)

== ENCOUNTER → 2021-07-12 | Outpatient (CLI) | payer OTHER | LOC: M RAD 12:15 | PROVIDERS: ATTEND Physician Assistant | DX: M25.561 Pain in right knee (principal); M25.562 Pain in left knee ==

== ENCOUNTER → 2021-07-19 | Outpatient (CLI) | payer OTHER | LOC: M WHC 08:10 | PROVIDERS: ATTEND Physician Assistant | DX: N64.4 Mastodynia (principal) | CPT/HCPCS: 76642; 77066; G0279 ==

== ENCOUNTER 2022-04-29 11:04 | Emergency (ER) | payer OTHER ==
[~2022-04-29] VITALS: Ht 165.1 cm; Wt 80.5 kg
[2022-04-29] MEDS ORDERED: ALLE1TAB23 (11:38)
[2022-04-29] MEDS ORDERED: FLUTISP (11:38)
[2022-04-29] MEDS ORDERED: ALIG4CAP (11:38)
[2022-04-29] MEDS ORDERED: EMGA120I (11:38)
[2022-04-29] MEDS ORDERED: IBUP-1022 PO (12:27)
[2022-04-29 12:33] VITALS: BP 125/70
== END 2022-04-29 12:45 | disposition home or self-care (01) ==
LOC: M ED 11:04
DX: S86.911A Strain of unspecified muscle(s) and tendon(s) at lower leg level, right leg, initial encounter (principal); X50.0XXA Overexertion from strenuous movement or load, initial encounter; Y93.H1 Activity, digging, shoveling and raking; E11.9 Type 2 diabetes mellitus without complications; Z88.1 Allergy status to other antibiotic agents; Z79.899 Other long term (current) drug therapy